=== PATIENT | male | born 1965 | race Caucasian/White ===

== ENCOUNTER 2017-10-02 16:17 | Emergency (ER) | payer OTHER, MEDICAID, SELFPAY | END 2017-10-02 17:29 | disposition home or self-care (01) | PROVIDERS: Emergency Provider Emergency Medicine; PCP Nurse Practitioner Family; Visit Provider Emergency Medicine | DX: A74.9 Chlamydial infection, unspecified (principal); A54.9 Gonococcal infection, unspecified | CPT/HCPCS: 81001; 87086; 87491; 87591; 96372; 99058; 99283; J0696 ==